=== PATIENT | female | born 1975 ===

== ENCOUNTER 2022-12-16 07:32 | Day surgery (SDC) | payer OTHER ==
[~2022-12-16] VITALS: Ht 162.6 cm; Wt 93.4 kg
[~2022-12-16 07:32] MED LIST: CHLORTHALIDONE25 MG PO; COZAAR100 MG PO; LIPITOR40 MG PO; NORVASC10 MG PO; TOPROL XL200 MG PO
[2022-12-16] MEDS ORDERED: NEURONTIN300 MG PO (12:54)
[2022-12-16] MEDS ORDERED: TRAM1TAB98 PO (12:54)
[2022-12-16] MEDS ORDERED: COLACE100 MG PO (12:54)
== END 2022-12-16 17:45 | disposition home or self-care (01) ==
LOC: CIR.AMB 07:32
PROVIDERS: ATTEND Surgery
DX: K60.1 Chronic anal fissure (principal); K62.4 Stenosis of anus and rectum; K62.89 Other specified diseases of anus and rectum; Z20.822 Contact with and (suspected) exposure to COVID-19; I10 Essential (primary) hypertension; F17.210 Nicotine dependence, cigarettes, uncomplicated